=== PATIENT | female | born 1975 | race Caucasian/White ===

== ENCOUNTER 2018-09-06 02:41 | Emergency (ER) | payer OTHER ==
[~2018-09-06] VITALS: Ht 162.6 cm; Wt 100.0 kg
[2018-09-06 02:48] VITALS: BP 134/80
[2018-09-06] MEDS ORDERED: [UNRECOGNIZED DRUG - OTHER] PO (02:55)
== END 2018-09-06 03:50 | disposition home or self-care (01) ==
LOC: EMS 02:41
DX: G44.209 Tension-type headache, unspecified, not intractable (principal); I10 Essential (primary) hypertension